=== PATIENT | female | born 1935 | race Hispanic/Latino ===

== ENCOUNTER 2018-12-28 15:00 | Emergency (ER) | payer MEDICARE, BC ==
--- NOTE | 2018-12-28 15:36 | CT ---
CT BRAIN NONCONTRAST: DATE: 12/28/2018 HISTORY: 83-year-old female undergoing acute stroke. Dysarthria and somnolence. Right-sided facial droop. Dr. Shah verbally gave this level 2 stroke alert protocol report to Dr. Chavira of the emergency Depar tment at 3:32 PM 12/28/2018 FINDINGS: There is no evidence of acute intra-axial or extra-axial hemorrhage. There is no midline shift or any other mass effect. There is no extra-axial fluid collection. There is no evidence of obstructive hydrocephalus. Calvarium is intact. There is diffuse brain parenchymal volume loss. There are low att enuation areas in the white matter. These are nonspecific, but in a patient of this age, they are probably chronic ischemic white matter changes due to microvascular atherosclerosis. There is an asym metric moderate size region of such low attenuation involving the left centrum semiovale and upper rodríguez radiata, inseparable from the chronic ischemic white matter changes. It is uncertain whether t his represents asymmetric component of chronic ischemic white matter changes or edema. IMPRESSION: 1) No definitive acute intracranial findings. 2) involutional changes and chronic ischemic white matter changes. 3) region of low attenuation the left cerebral deep white matter. Uncertain whether this is an asymme trical portion of the chronic ischemic white matter changes or whether this represents a region of edema. The former is slightly favored.
[2018-12-28 15:42] LABS: #Eosinphils 0.1 thou/uL (0.0-0.7); #Lymphocytes 0.9 thou/uL (1.20-3.40); #Monocytes 0.6 thou/uL (0.11-0.59); #Neutrophils 4.5 thou/uL (1.40-6.50); %Basophils 0.3 % (0.0-1.0); %Eosinophils 1.3 % (0.0-10.0); %Lymphocytes 14.5 % (21.0-51.0); %Neutrophils 73.9 % (42.0-75.0); Hemoglobin 9.3 g/dL (12.0-16.0); Mean Corpuscular HGB CONC 29.5 g/dL (32.0-36.0); Mean Corpuscular Hemoglobin 28.4 pg (27.0-31.0); Mean Corpuscular Volume 96.3 fL (78.0-98.0); Platelet Count 164 thou/uL (130-400); Red Blood Cell (RBC) Count 3.27 mill/uL (4.20-5.40); White Blood Cell (WBC) Count 6.1 thou/uL (4.8-10.8)
[2018-12-28 15:48] LABS: INR-International Normal Ratio 1.1; Prothrombin Time 14.5 SEC (12.0-14.7)
[2018-12-28 15:49] LABS: PTT 34.8 SEC (22.9-36.1)
[2018-12-28 16:00] LABS: ALT (SGPT) 12 U/L (8-55); AST (SGOT) 21 U/L (5-34); Albumin 3.3 g/dL (3.4-4.8); Alkaline Phosphatase 91 U/L (40-150); BUN (Urea Nitrogen) 72 mg/dL (9.8-20.1); Bilirubin, Total 0.4 mg/dL (0.2-1.2); CK (CPK) 36 U/L (29-168); Calc. Creatinine Clearance 0 mL/min (70-130); Calcium 8.8 mg/dL (7.8-10.44); Estimated GFR-MDRD 20; Globulin 3.2 g/dL (2.4-3.5); Glucose 114 mg/dL (83-110); Protein, Total 6.5 g/dL (6.0-8.3)
--- NOTE | 2018-12-28 16:10 | RAD ---
RADIOGRAPH CHEST 1 VIEW: DATE: 12/28/2018 TIME: 3:48 PM HISTORY: 83-year-old female with dyspnea COMPARISON: 06/07/2010 FINDINGS: New dual lead left subclavian pacemaker. New left pleural effusion and airspace density at left base. Haziness of bilateral lower lung zones. No pneumothorax. IMPRESSION: 1. Left pleural effusion. 2. Cardiomegaly. 3. Pulmonary edema versus atelectasis versus pneumonia at bilateral lung bases. 4. Pacemaker.
[2018-12-28 16:18] LABS: CKMB 5.6 ng/mL (0-6.6)
[2018-12-28 16:24] LABS: Anion Gap 17 mmol/L (10-20); Carbon Dioxide 34 mmol/L (23-31); Chloride 95 mmol/L (98-107); Sodium 141 mmol/L (136-145)
[2018-12-28] MEDS ORDERED: Aspirin Chewable 81 MG TAB ONE (17:10)
[2018-12-28] MEDS ORDERED: Furosemide 40 MG/4 ML VIAL ONE ×2 (17:10→22:27)
--- NOTE | 2018-12-28 17:15 | ULT ---
Right upper extremity venous ultrasound with Doppler HISTORY: Evaluate for thrombus. Swelling COMPARISON: None TECHNIQUE: Grayscale, color flow, Doppler imaging and spectral wave form analysis performed of [facility] FINDINGS: There is patency, compressibility and flow in the in internal jugular vein. Subclavian vein is patent. Axillary vein compresses and has flow. Brachial vein, cephalic vein are patent. Proximal basilic vein is patent. The distal basilic vein is not appreciated. Limited evaluation due t o soft tissue edema. Radial vein and ulnar vein are patent IMPRESSION: Limited evaluation of the distal basilic vein. The visualized right upper extremity venou s system is patent.
[2018-12-28 19:03] LABS: Troponin I 0.028 ng/mL (< 0.028)
[2018-12-28 19:04] LABS: Bacteria/HPF 1+ HPF (None Seen); Bilirubin Negative (Negative); Blood, Urine Negative (Negative); Clarity Clear (Clear); Glucose, Urine (Dipstick) Normal (Negative); Leukocyte 250 Leu/uL (Negative); Nitrite Negative (Negative); Protein, Urine (Dipstick) Negative (Neg-Trace); RBC/HPF 0-3 HPF (0-3); Renal Epithelial 0-3 HPF (None Seen); Squamous Epithelial 0-3 HPF (0-3); Transitional Epithelial 0-3 HPF (None Seen); Urobilinogen Normal mg/dL (Less than 2)
[2018-12-28 21:35] LABS: Troponin I 0.024 ng/mL (< 0.028)
[2018-12-28 22:01] LABS: Analyzer IN Cardio ER; Base Excess (BEa) 8.5 mEq/L (-2.0 to +3.0); Calcium, Ionized 1.16 mmol/L (1.12-1.30); Carboxyhemoglobin (COHb) 0.6 gm% (0.0-3.0); O2 Tension (PaO2) 359.3 mmHg (> 60.0); Potassium - ABG Lab 5.26 mmol/L (3.70-5.30)
[2018-12-28 22:05] LABS: CO2 Tension 102.2 mmHg (35.0-45.0)
[2018-12-28 22:06] LABS: Puncture Site RRAD
[2018-12-28] MEDS ORDERED: Sodium Chloride 0.9% 100 ML ONE (22:27)
[2018-12-28] MEDS ORDERED: cefTRIAXone\\ROCEPHIN 1 GM VIAL ONE (22:27)
--- NOTE | 2018-12-30 22:10 | EKG ---
Test Reason : Blood Pressure : / mmHG Vent. Rate : 055 BPM Atrial Rate : 267 BPM P-R Int : 000 ms QRS Dur : 180 ms QT Int : 538 ms P-R-T Axes : 000 -32 -02 degrees QTc Int : 514 ms Demand pacemaker; interpretation is based on intrinsic rhythm Atrial fibrillation with slow ventricular response with premature ventricular or aberrantly conducted complexes Left axis deviation Right bundle branch block Abnormal ECG Confirmed by LIZBETH REDDY ([id number]), video tape editor IVETTE HARDEN ([id number]) on 12/30/2018 10:09:23 PM Referred By: BARRY Confirmed By:LIZBETH REDDY
== END 2018-12-28 23:29 | disposition short-term general hospital (02) ==
LOC: ERS 15:00
DX: I50.9 Heart failure, unspecified (principal); N17.9 Acute kidney failure, unspecified; R79.89 Other specified abnormal findings of blood chemistry; G45.9 Transient cerebral ischemic attack, unspecified; R41.82 Altered mental status, unspecified; E11.9 Type 2 diabetes mellitus without complications; Z87.891 Personal history of nicotine dependence; Z79.4 Long term (current) use of insulin; Z79.899 Other long term (current) drug therapy
CPT/HCPCS: 36415; 36416; 70450; 71045; 80053; 81003; 81015; 82550; 82553; 82805; 83735; 83880; 84484; 85025; 85610; 85730; 93005; 94660; 96365; 96375; 96376; 99292; J0696; J1940; J3490

== ENCOUNTER 2019-01-09 07:26 | Inpatient (IN) | payer MEDICARE, BC ==
[2019-01-09 08:01] LABS: Actual Bicarbonate (HCO3a) 50.9 mEq/L (22-28); Analyzer IN Cardio ER; Base Excess (BEa) 18.8 mEq/L (-2.0 to +3.0); Calcium, Ionized 1.11 mmol/L (1.12-1.30); Carboxyhemoglobin (COHb) 1.3 gm% (0.0-3.0); Hemoglobin (Hb) 9.6 g/dL (12.0-16.0); O2 Tension (PaO2) 64.1 mmHg (> 60.0); Potassium - ABG Lab 4.44 mmol/L (3.70-5.30)
[2019-01-09 08:03] LABS: Bilirubin Negative (Negative); Blood, Urine Trace (Negative); Clarity Turbid (Clear); Glucose, Urine (Dipstick) Normal (Negative); Leukocyte Negative Leu/uL (Negative); Nitrite Negative (Negative); Protein, Urine (Dipstick) 10 mg/dL (Neg-Trace); Squamous Epithelial 0-3 HPF (0-3); Urobilinogen Normal mg/dL (Less than 2); WBC/HPF 0-3 HPF (0-3)
[2019-01-09 08:03] LABS: CO2 Tension 134.8 mmHg (35.0-45.0); Puncture Site RRA
[2019-01-09 08:15] LABS: Bacteria/HPF 1+ HPF (None Seen)
[2019-01-09 08:15] LABS: Hemoglobin 8.8 g/dL (12.0-16.0); Mean Corpuscular HGB CONC 29.9 g/dL (32.0-36.0); Mean Corpuscular Hemoglobin 28.4 pg (27.0-31.0); Mean Platelet Volume 9.3 fL (7.4-10.4); Platelet Count 142 thou/uL (130-400); RBC Distribution Width 14.9 % (11.5-14.5); White Blood Cell (WBC) Count 7.3 thou/uL (4.8-10.8)
[2019-01-09] MEDS ORDERED: Nitroglycerin 25 mg/250 ml BOT IV SCH (08:15)
[2019-01-09 08:16] LABS: #Monocytes 0.6 thou/uL (0.11-0.59); #Neutrophils 5.7 thou/uL (1.40-6.50); %Basophils 0.2 % (0.0-1.0); %Eosinophils 0.5 % (0.0-10.0); %Lymphocytes 13.4 % (21.0-51.0); %Monocytes 8.2 % (0.0-10.0); %Neutrophils 77.7 % (42.0-75.0)
[2019-01-09 08:17] LABS: RBC/HPF 0-3 HPF (0-3)
[2019-01-09 08:18] LABS: Yeast-Budding None Seen HPF (None Seen)
[2019-01-09 08:32] LABS: Hypochromia SLIGHT = 6-15 cells (100X) (0-5/hpf); MDiff Complete? YES; Platelet Morphology Comment Appears Adequate; Polychromasia SLIGHT = 2-3 cells (100X) (0-2/hpf)
[2019-01-09 08:38] LABS: ALT (SGPT) 14 U/L (8-55); AST (SGOT) 26 U/L (5-34); Albumin 3.4 g/dL (3.4-4.8); Alkaline Phosphatase 97 U/L (40-150); BUN (Urea Nitrogen) 80 mg/dL (9.8-20.1); Bilirubin, Total 0.5 mg/dL (0.2-1.2); Calc. Creatinine Clearance 0 mL/min (70-130); Calcium 8.8 mg/dL (7.8-10.44); Estimated GFR-MDRD 17; Globulin 3.5 g/dL (2.4-3.5); Glucose 143 mg/dL (83-110); Protein, Total 6.9 g/dL (6.0-8.3)
[2019-01-09 08:43] LABS: Anion Gap 17 mmol/L (10-20)
[2019-01-09 08:47] LABS: Carbon Dioxide 33 mmol/L (23-31); Chloride 90 mmol/L (98-107); Potassium 4.5 mmol/L (3.5-5.1); Sodium 138 mmol/L (136-145)
[2019-01-09 08:59] LABS: CKMB 4.2 ng/mL (0-6.6)
--- NOTE | 2019-01-09 09:28 | RAD ---
UPRIGHT PORTABLE CHEST 1 VIEW: HISTORY: Altered mental status, fluid retention. COMPARISON: 12/28/2018. FINDINGS: Left ICD. Cardiomegaly. Status post TAVR. Bilateral vascular congestion, interstitial and alveolar edema, and pleural effusions, evidence for some congestive heart failure. The amount of edema appea rs to be minimally more prominent than the prior study. IMPRESSION: Evidence for slight worsening edema and congestive heart failure from prior study. POS: OFF
[2019-01-09] MEDS ORDERED: Furosemide 40 MG/4 ML VIAL ONE (09:37)
[2019-01-09] MEDS ORDERED: Morphine 4 MG/ML VIAL SLOW IVP PRN (10:52)
[2019-01-09] MEDS ORDERED: Lorazepam 2 MG/ML VIAL SLOW IVP PRN (10:53)
[2019-01-09] MEDS ORDERED: Calcium Carbonate 500 MG ChewTAB PO PRN (11:35)
[2019-01-09] MEDS ORDERED: Acetaminophen 650 MG Suppository PR PRN (11:35)
[2019-01-09] MEDS ORDERED: Acetaminophen 325 MG TAB PO PRN (11:35)
[2019-01-09] MEDS ORDERED: Ondansetron PF 4 MG/2 ML Vial IVP PRN (11:35)
[2019-01-09] MEDS ORDERED: Ondansetron ODT 4 MG TAB PO PRN (11:35)
[2019-01-09 11:41] LABS: Troponin I 0.012 ng/mL (< 0.028)
[2019-01-09] MEDS ORDERED: Scopolamine 1.5 mg/72 hour Patch TD SCH (11:45)
--- NOTE | 2019-01-09 12:23 | HP ---
PRIMARY CARE PHYSICIAN: Sydney Kinney MD PRIMARY EXCAVATING CONTRACTOR: Dr. Soria. CHIEF COMPLAINT: Altered mentation. HISTORY OF PRESENT ILLNESS: The patient is an 83-year-old female with acute systolic and diastolic heart failure; coronary artery disease; diabetes mellitus, type 2; hypertension; peripheral vascular disease; and CKD, presented to the hospital from [facility] with above complaints. The patient was discharged from [facility] yesterday after a 10-day stay for congestive heart failure exacerbation. The patient was evaluated by Cardiology, Dr. Soria, as well as Nephrology, Dr. Francois/Flip. She continued to get worsen. Hospice was recommended. The family is in the process of applying for Medicaid for hospice at [facility]. This morning, she was found to have altered mentation along with lethargy. She was sent to this facility for hospital admission. Initial O2 saturation was 77% on nasal cannula. She was started on noninvasive positive-pressure ventilation. At this time, the patient is unresponsive and not following any commands. History obtained from the family at the bedside. PAST MEDICAL HISTORY: 1. Coronary artery disease. 2. Acute systolic and diastolic heart failure with recent exacerbation. 3. Peripheral vascular disease. 4. Hypertension. 5. Hyperlipidemia. 6. Hypothyroidism. 7. Peripheral vascular disease. 8. Chronic kidney disease, stage 4. PAST SURGICAL HISTORY: 1. Pacemaker placement. 2. Coronary stent placement. 3. Peripheral vascular stent placement. 4. Cholecystectomy. 5. . 6. Tubal ligation. 7. Left knee replacement. 8. Bilateral cataract surgeries. ALLERGIES: NO KNOWN DRUG ALLERGIES. CURRENT MEDICATIONS: At [facility], 1. Hydralazine 100 mg 3 times daily. 2. Loratadine 10 mg daily. 3. Amiodarone 200 mg twice a day. 4. Carvedilol 3.125 mg b.i.d. 5. Colace 100 mg b.i.d. 6. Pepcid 20 mg daily. 7. Folic acid 1 mg daily. 8. Lasix 40 mg daily. 9. Januvia 25 mg daily. 10. Humalog sliding scale. 11. Eliquis 2.5 mg b.i.d. 12. Plavix 75 mg daily. 13. Glimepiride 2 mg daily. 14. Levothyroxine 75 mcg daily. 15. MiraLAX 17 g daily. 16. Magnesium oxide 400 mg daily. 17. Potassium chloride ER 10 mEq daily. 18. Vitamin B12, 1000 mcg daily. 19. Vitamin D3, 5000 units daily. SOCIAL HISTORY: The patient currently lives at [facility] under the care of Dr. Oquendo. She is a former smoker. She is a DNR. This was confirmed with daughter, Sloane, at the bedside. Sloane is the DPOA. FAMILY HISTORY: Negative for premature coronary artery disease. REVIEW OF SYSTEMS: Cannot be reliably obtained from the patient due to current cognitive status. PHYSICAL EXAMINATION: VITAL SIGNS: The patient's temperature 95.4 rectally with respirations of 29, pulse of 62, blood pressure of 179/67 with O2 saturation of 85% on BiPAP. GENERAL: An 83-year-old female, unresponsive. HEENT: Head, atraumatic and normocephalic. Sclerae anicteric. NECK: Supple. No carotid bruit. JVD elevated. LUNGS: Showed diffuse rhonchi with bibasilar rales. There is accessory muscle use. No significant wheezing. HEART: S1 and S2 present. Regular rate and rhythm. 3/6 systolic murmur over the mitral area. ABDOMEN: Soft. Bowel sounds present. No rebound or guarding. EXTREMITIES: 4+ edema in bilateral lower extremities. NEUROLOGIC AND PSYCHIATRY: Could not be reliably done due to current cognitive status. SKIN: Warm and dry. LYMPH NODES: No palpable lymph nodes in the neck. LABORATORY DATA: Lab findings; creatinine 2.63, BUN of 80, sodium 138, potassium 4.5, chloride 90, and bicarb 33. WBC 7.3 with hemoglobin 8.8, and platelet count of 142. Urinalysis was negative for wbc. ABG showed pH 7.2 with pCO2 of 135, bicarbonate of 51, PO2 of 64.1. Chest x-ray by my review showed cardiomegaly with pulmonary edema. EKG by my review showed paced rhythm. IMPRESSION: 1. Acute hypoxic and hypercapnic respiratory failure, secondary to Acute on chronic systolic and diastolic heart failure exacerbation. 2. Recent 10-day stay at [facility] for congestive heart failure exacerbation. 3. Toxic metabolic encephalopathy, secondary to respiratory failure. 4. Acute kidney injury on chronic kidney disease, stage 4. 5. Type 2 myocardial infarction. 6. Chronic anemia. 7. Former smoker. 8. Hypothyroidism. 9. Diabetes mellitus, type 2. 10. Hyperlipidemia. 11. Paroxysmal atrial fibrillation, on anticoagulation. 12. Chronic anticoagulation. 13. Peripheral vascular disease, status post stent placement. 14. Coronary artery disease. PLAN: The patient is currently on noninvasive positive-pressure ventilation while in the emergency room. Dr. Love has evaluated the patient. The family was trying to get hospice at the nursing facility. After an extensive discussion with the family, they agreed to discontinue noninvasive positive-pressure ventilation at this time. They want to make her comfortable. DNR was verified. We will admit her on the medical floor for symptom management/comfort care. We will start IV morphine and Ativan p.r.n. Palliative Care Team has been notified. We will consult welfare case worker for hospice setup. Spiritual Care will be consulted. Plan was discussed with the family in detail. They stated understanding. Job ID: [id number] MTDD
[2019-01-09] MEDS ORDERED: Morphine 4 MG/ML VIAL ONE (12:40)
[2019-01-09] MEDS ORDERED: Lorazepam 2 MG/ML VIAL ONE (12:59)
--- NOTE | 2019-01-09 13:32 | CON ---
DATE OF CONSULTATION: HISTORY OF PRESENT ILLNESS: Jany Nichols is an 83-year-old female , encephalopathic in the ER. History obtained from a transport driver, who is daughter and niece. She was just recently discharged from a peripheral hospital with a diagnosis of end-stage cardiomyopathy, respiratory failure, COPD, morbid obesity, severe deconditioning. She was in the intermediate and presented with altered mental status, worsening symptoms. She has severe respiratory acidosis. She is a DNR, not to be intubated. I discussed with the family at length that a prognosis is grave.would dc_ BiPAP off put on a non-rebreather. Transfer to inpatient for comfort care. They are agreeable. Additional information from family members, PAST MEDICAL HISTORY: Longstanding history of diabetes, hypertension, CHF, COPD , probably sleep apnea. PREVIOUS SURGERIES: Pacemaker, cardiac stent and leg stents, previous cholecystectomy, tubal ligation, left knee, cataract. SOCIAL HISTORY: Alcohol none, smoker, former. Spoke to the family, has severe limitation to activity for a long time. She had a recent CT done of her head on 12/28/2018, which is negative. She had a chest x-ray taken prior to this admission about a week ago which also showed persistent cardiomegaly, bilateral pleural effusion, left greater than right with a pacemaker in place. HOME MEDICATIONS: Unknown. REVIEW OF SYSTEMS: Unobtainable. PHYSICAL EXAMINATION: GENERAL: The patient is obtunded, unresponsive. VITAL SIGNS: Sats 98%. Blood pressure 100/80, pulse 100 resp35 LUNGS: Extensive rhonchi and crackles. ABDOMEN: Soft. Lytes, creatinine is 2.6, BUN is 80. Urine is negative. Chest x-ray, CHF. PO2 64, pCO2 134, pH of 7.20 on BiPAP, 70% FiO2. White count , hemoglobin 8, hematocrit 29, platelet count 142. Multiorgan failure. IMPRESSION: 1. Respiratory failure, marked respiratory acidosis. 2. Congestive heart failure, possibly superimposed pneumonia. 3. Baseline probably chronic obstructive pulmonary disease, former smoker for renal failure. As per family members comfort care, inpatient hospice if she survives the next 24 to 48 hours. Morphine, Ativan. 70 minutes, 50% direct patient care. Job ID: [id number] [facility]
--- NOTE | 2019-01-10 07:48 | DIS ---
DATE OF ADMISSION: 01/09/2019 DATE OF DISCHARGE: 01/09/2019 SUMMARY: DATE OF EXPIRATION: December,. BRIEF HOSPITAL COURSE: The patient was an 83-year-old female with congestive heart failure and coronary artery disease, who was discharged from [facility] yesterday to [place], was brought into the hospital with altered mentation. Please refer to the history and physical dictated by me earlier today for details. The patient was admitted to the hospital with a diagnosis of acute hypoxic and hypercapnic respiratory failure secondary to acute on chronic systolic/diastolic heart failure exacerbation. ABGs showed pH of 7.2 with pCO2 of 134.8, PO2 of 64.1, and bicarbonate of 51. She was initially started on noninvasive positive-pressure ventilation. Graduate Fellow, Dr. Love was consulted. The family decided on comfort measures only. Noninvasive positive-pressure ventilation was discontinued per family request. The patient in the emergency room on December at 1:24 p.m. The family was at the bedside. FINAL DIAGNOSES: 1. Acute hypoxic and hypercapnic respiratory failure secondary to congestive heart failure exacerbation. 2. Recent 10-day stay at [facility] for her congestive heart failure exacerbation. 3. Acute on chronic systolic/diastolic heart failure. 4. Toxic metabolic encephalopathy secondary to respiratory failure/hypercapnia. 5. Acute kidney injury on chronic kidney disease stage 4. 6. Coronary artery disease with type 2 myocardial infarction. 7. Peripheral vascular disease. 8. Paroxysmal atrial fibrillation, on anticoagulation. 9. Diabetes mellitus, type 2. 10. Hypertension. 11. Hyperlipidemia. 12. Hypothyroidism. 13. Chronic anticoagulation. 14. Do not resuscitate. 15. Chronic anemia. Job ID: [id number]
--- NOTE | 2019-01-13 15:21 | EKG ---
Test Reason : ER Blood Pressure : / mmHG Vent. Rate : 052 BPM Atrial Rate : 027 BPM P-R Int : 000 ms QRS Dur : 190 ms QT Int : 572 ms P-R-T Axes : 000 -48 024 degrees QTc Int : 531 ms Wide QRS rhythm with frequent ventricular-paced complexes Left axis deviation Right bundle branch block Abnormal ECG Confirmed by THANH ANG DO ([id number]), editor map HAILEY THORNE ([id number]) on 01/13/2019 3:21:19 PM Referred By: Confirmed By:THANH ANG DO
== END 2019-01-09 16:15 | disposition expired ==
LOC: ERS 07:26 → ERHOLD 11:01
PROVIDERS: ADMIT Internal Medicine; ATTEND Internal Medicine
DX: I13.0 Hypertensive heart and chronic kidney disease with heart failure and stage 1 through stage 4 chronic kidney disease, or unspecified chronic kidney disease (principal); J96.02 Acute respiratory failure with hypercapnia; I21.A1 Myocardial infarction type 2; I50.43 Acute on chronic combined systolic (congestive) and diastolic (congestive) heart failure; G92 Toxic encephalopathy; J96.01 Acute respiratory failure with hypoxia; N18.4 Chronic kidney disease, stage 4 (severe); N17.9 Acute kidney failure, unspecified; Z66 Do not resuscitate; E11.22 Type 2 diabetes mellitus with diabetic chronic kidney disease; I25.10 Atherosclerotic heart disease of native coronary artery without angina pectoris; I73.9 Peripheral vascular disease, unspecified; I48.0 Paroxysmal atrial fibrillation; E78.5 Hyperlipidemia, unspecified; E03.9 Hypothyroidism, unspecified; Z96.652 Presence of left artificial knee joint; D63.1 Anemia in chronic kidney disease; Z79.4 Long term (current) use of insulin; Z79.01 Long term (current) use of anticoagulants; Z95.0 Presence of cardiac pacemaker; Z95.5 Presence of coronary angioplasty implant and graft; Z90.49 Acquired absence of other specified parts of digestive tract; Z98.51 Tubal ligation status; Z98.42 Cataract extraction status, left eye; Z98.41 Cataract extraction status, right eye; Z87.891 Personal history of nicotine dependence
CPT/HCPCS: 36415; 71045; 80053; 81003; 81015; 82553; 82805; 84484; 85025; 93005; 94660; A4353; J1940; J2060; J2270